=== PATIENT | male | born 1960 | race Caucasian/White ===

== ENCOUNTER 2016-07-09 23:43 | Emergency (ER) | payer OTHER ==
[2016-07-09 23:50] VITALS: BP 137/96; PULSE 88; TEMP 97.7; BMI 29.4
--- NOTE | 2016-07-10 00:35 | PDOC ---
History of Present Illness - General Chief Complaint: Lightheaded Stated Complaint: HOT FLASHES Time Seen by Provider: 07/09/16 23:55 History Source: Patient Exam Limitations: No Limitations - History of Present Illness Initial Comments: 07/10/16 00:33 This is a 56-year-old male who comes in complaining of headache, body aches, hot and cold flashes. Patient did not take his temperature however did take some Aleve shortly before coming in and now feels like he is hot. Patient denies any cough or congestion at this time. Patient is otherwise healthy and he takes no medications. Patient denies any substance abuse, patient is otherwise healthy. PAST MEDICAL HISTORY: no significant history PAST SURGICAL HISTORY: no significant history FAMILY HISTORY: no pertinant history SOCIAL HISTORY: Pt lives with family and is employed. MEDICATIONS: reviewed ALLERGIES: As per nursing notes Review of Systems General: + fevers or chills, no weakness, no weight loss HEENT: No change in vision. No sore throat,. No ear pain CardioVascular: No chest pain or shortness of breath Respiratory:No cough, or wheezing. Gastrointestinal: no nausea, vomitting, diarrhea or constipation, No rectal bleeding Genitourinary: No dysuria, hematuria, or frequency Musculoskeletal: + body aches Neurologic: + headache, vertigo, dizziness or loss of consciousness Psychiatric: nor depression Skin: No rashes or easy bruising Endocrine: no increased thirst or abnormal weight change Allergic: no skin or latex allergy All other systems reviewed and normal Exam: General: Well-nourished well-developed individual, no acute distress HEENT: Throat: Normal, tonsils normal, no erythema or exudate Neck: Supple, no meningeal signs, no lymphadenopathy Eyes::Pupils equal reactive and round, extraocular motion intact Chest: Nontender to palpation Cardiac: S1-S2 normal, regular rate and rhythm, no murmurs rubs or gallops Respiratory: Lungs clear to auscultation bilateral Abdomen: Soft, nondistended, normal bowel sounds, nontender to palpation diffusely Extremities: Warm, dry, no cyanosis, clubbing, or edema Skin: No rashes Neuro: Alert and oriented x3, nonfocal exam, grossly intact, normal gait Psych: Normal mood and affect Assessment and plan: This is a 56-year-old male who comes in complaining of hot flashes, headache and body aches. Patient said that heart flashes a core after he takes Tylenol for his headache or body aches. Patient most likely is experiencing some fevers in addition to his other symptoms and when he takes the Tylenol it causes a fever bruit to break giving him the hot flashes. Patient was afebrile here in the emergency room. Patients symptoms are consistent with influenza-type illness. Patient otherwise had a normal exam. And his headache and body aches had improved post taking the Aleve. Patient was reassured that his symptoms most likely are secondary to a viral etiology and continue to take Tylenol or Motrin for his symptoms and follow-up with his doctor on Tuesday if not improved. Past History - Past Medical History Allergies/Adverse Reactions: Allergies Allergy/AdvReac Type Severity Reaction Status Date / Time celery Allergy Throat Verified 10/10/15 18:17 swelling if raw Seasonal allergies Allergy Uncoded 10/10/15 18:17 Home Medications: Ambulatory Orders NK [No Known Home Medication] 10/10/15 Other medical history: DENIES - Psycho/Social/Smoking Cessation Hx Anxiety: No Suicidal Ideation: No Smoking Status: No Smoking History: Never smoked Number of Cigarettes Smoked Daily: 0 Hx Alcohol Use: No Drug/Substance Use Hx: No Substance Use Type: None Hx Substance Use Treatment: No *Physical Exam - Vital Signs Last Vital Signs Temp Pulse Resp BP Pulse Ox 97.7 F 88 16 137/96 98 07/09/16 23:45 07/09/16 23:45 07/09/16 23:45 07/09/16 23:45 07/09/16 23:45 *DC/Admit/Observation/Transfer Diagnosis at time of Disposition: Influenza-like illness - Discharge Dispostion Disposition: HOME Condition at time of disposition: Stable - Referrals Referrals: Trell Mercado MD [Primary Care Provider] - - Patient Instructions Additional Instructions: Tylenol or Motrin as needed for headache, body aches and fevers. Return to the emergency department immediately with ANY new, persistent or worsening symptoms. Continue any medications as previously prescribed by your physician. You should follow up with your primary doctor as soon as possible regarding today's emergency department visit. . Please make sure your doctor reviews the results of your emergency evaluation. Thank you for coming to the Emergency Department today for your care. It was a pleasure to see you today. Please note that your evaluation is INCOMPLETE until you follow-up with your doctor.
== END 2016-07-10 00:38 | disposition home or self-care (01) ==
LOC: FER 23:43
DX: J11.1 Influenza due to unidentified influenza virus with other respiratory manifestations (principal)
CPT/HCPCS: 99281-25

== ENCOUNTER 2018-05-30 07:49 | Emergency (ER) | payer OTHER ==
[2018-05-30 08:06] VITALS: TEMP 98.3; BMI 29.8
[2018-05-30] MEDS ORDERED: ALBUTEROL SO4 2.5/IPRATROPIUM 0.5 INH SOL 3 ML VIAL.NEB. NEB ONE ×4 (08:40→09:11)
--- NOTE | 2018-05-30 08:45 | PDOC ---
History of Present Illness - General Chief Complaint: Respiratory Stated Complaint: FEELING SOME SHORTNESS OF BREATH COUGH Time Seen by Provider: 05/30/18 07:59 History Source: Patient Exam Limitations: No Limitations - History of Present Illness Initial Comments: 05/30/18 08:41 CHIEF COMPLAINT: Cough and asthma 2 weeks HISTORY OF PRESENT ILLNESS: This is a 58-year-old man with a history of asthma, mild, intermittent, usually treated with albuterol. Positive ED visits in the past but never hospitalized. Patient has been off asthma medication for quite a while. His last attack was about 2 years ago. Over the past 2 weeks he has been noticing mostly nocturnal wheezing with shortness of breath. He did not have any medication for his asthma. He denies any URI symptoms. There is no sore throat or fever. There is no nasal discharge. He has been having cough which is stimulated by taking a deep breath. There is no sputum production. There is no chest pain. He does have shortness of breath which waxes and wanes depending on the degree of wheezing. REVIEW OF SYSTEMS: GENERAL/CONSTITUTIONAL: No fever or chills. No weakness. No weight change. HEAD, EYES, EARS, NOSE AND THROAT: No change in vision. No ear pain or discharge. No sore throat. CARDIOVASCULAR: No chest pain. + Positive shortness of breath. No history of DVT. No leg swelling or pain. RESPIRATORY: + Positive cough and wheezing. No hemoptysis. GASTROINTESTINAL: No nausea, vomiting, diarrhea or constipation. No rectal bleeding. GENITOURINARY: No dysuria, frequency, or change in urination. MUSCULOSKELETAL: No joint or muscle swelling or pain. No neck or back pain. SKIN AND BREASTS: No rash or easy bruising. NEUROLOGIC: No headache, vertigo, loss of consciousness, or loss of sensation. PSYCHIATRIC: No depression or anxiety. ENDOCRINE: No increased thirst. No abnormal weight change. HEMATOLOGIC/LYMPHATIC: No anemia, easy bleeding, or history of blood clots. ALLERGIC/IMMUNOLOGIC: No hives or skin allergy. No latex allergy. Past History - Past Medical History Allergies/Adverse Reactions: Allergies Allergy/AdvReac Type Severity Reaction Status Date / Time celery Allergy Throat Verified 10/10/15 18:17 swelling if raw Seasonal allergies Allergy Uncoded 10/10/15 18:17 Home Medications: Ambulatory Orders Albuterol Sulfate Inhaler - [Ventolin HFA Inhaler -] 2 inh PO Q4H PRN #1 inh 06/17 Asthma: Yes (MILD, intermittent) COPD: No - Suicide/Smoking/Psychosocial Hx Smoking Status: No Smoking History: Never smoked Have you smoked in the past 12 months: No Number of Cigarettes Smoked Daily: 0 Information on smoking cessation initiated: No Hx Alcohol Use: Yes (SOCIAL) Drug/Substance Use Hx: No Substance Use Type: None Hx Substance Use Treatment: No *Physical Exam - Vital Signs Last Vital Signs Temp Pulse Resp BP Pulse Ox 98.3 F 100 H 20 150/108 H 100 05/30/18 07:50 05/30/18 07:50 05/30/18 07:50 05/30/18 07:50 05/30/18 07:50 - Physical Exam Comments: 05/30/18 08:44 GENERAL: The patient is awake, alert, and fully oriented, in no acute distress. He is breathing comfortably, speaking in full sentences with no respiratory distress. Peak expiratory flow rate was 350, and on repeat 340, prior to treatment. HEAD: Normal with no signs of trauma. EYES: Pupils equal, round and reactive to light, extraocular movements intact, sclera anicteric, conjunctiva clear. ENT: Ears normal, nares patent, oropharynx clear without exudates. Moist mucous membranes. NECK: Normal range of motion, supple without lymphadenopathy, JVD, or masses. LUNGS: There are bilateral scattered expiratory wheezes. No crackles. Positive mild nonproductive cough, exacerbated on deep breath. HEART: Regular rate and rhythm, normal S1 and S2 without murmur, rub or gallop. ABDOMEN: Soft, nontender, normoactive bowel sounds. No guarding, no rebound. No masses. EXTREMITIES: Normal range of motion, no edema. No clubbing or cyanosis. No cords, erythema, or tenderness. No calf tenderness. NEUROLOGICAL: Cranial nerves II through XII grossly intact. Normal speech, normal gait. PSYCH: Normal mood, normal affect. SKIN: Warm, Dry, normal turgor, no rashes or lesions noted. Moderate Sedation - Procedure Monitoring Vital Signs: Procedure Monitoring Vital Signs Temperature 98.3 F 05/30/18 07:50 Pulse Rate 100 H 05/30/18 07:50 Respiratory Rate 20 05/30/18 07:50 Blood Pressure 150/108 H 05/30/18 07:50 O2 Sat by Pulse Oximetry (%) 100 05/30/18 07:50 Heart Score/ECG Review - ECG Impressions Comment:: 05/30/18 09:05 Twelve-lead EKG shows normal sinus rhythm at a rate of 90 bpm. The axis is normal. The intervals are normal. There are no acute ST elevations or depressions. Impression: Normal 12-lead EKG ED Treatment Course - RADIOLOGY Radiology Studies Ordered: Category Date Time Status CHEST PA & LAT [RAD] Stat Radiology 05/30/18 08:41 Ordered Medical Decision Making - Medical Decision Making 05/30/18 10:08 Patient is a 58 old man with a prior history of mild intermittent asthma. He comes in now with 2 weeks of wheezing and shortness of breath. He has been on no medications for asthma lately. There are no symptoms of upper respiratory infections. On examination, there is mild scattered wheezing. Initial peak flow was 350 prior to treatment. After 2 nebulizer treatments the repeat lung exam is clear with normal breath sounds. Peak flow increased to 450 L/m. Patient is feeling much better. Twelve-lead EKG shows normal sinus rhythm without acute changes. Chest x-ray PA and lateral is clear without any signs of heart or lung abnormalities. Impression: Asthma exacerbation. Patient will be prescribed albuterol which has worked very well for him in the emergency department. He will follow-up with his primary care physician Dr. Mercado. *DC/Admit/Observation/Transfer Diagnosis at time of Disposition: Asthma exacerbation Qualifiers: Asthma severity: mild Asthma persistence: persistent Qualified Code(s): J45.31 - Mild persistent asthma with (acute) exacerbation - Discharge Dispostion Disposition: HOME Condition at time of disposition: Stable Decision to Admit order: No - Prescriptions Prescriptions: Albuterol Sulfate Inhaler - [Ventolin HFA Inhaler -] 2 inh PO Q4H PRN #1 inh PRN Reason: wheezing, shortness of breath - Referrals Referrals: Trell Mercado MD [Primary Care Provider] - 7 days - Patient Instructions Printed Discharge Instructions: DI for Asthma -- Adult Additional Instructions: Today you were evaluated for cough and wheezing. You were found to have asthma with wheezing on examination. The chest x-ray is normal. The EKG is normal. Your diagnosis is a flareup of asthma. You are advised to take albuterol 2 puffs every 4 hours as needed for cough or wheezing. Follow-up with Dr. Mercado in the next week. Return to the emergency department for any severe or progressive symptoms. - Post Discharge Activity
[2018-05-30 09:32] VITALS: BP 128/97; PULSE 98
--- NOTE | 2018-05-31 19:04 | EKG ---
Test Reason : Blood Pressure : / mmHG Vent. Rate : 090 BPM Atrial Rate : 090 BPM P-R Int : 176 ms QRS Dur : 088 ms QT Int : 380 ms P-R-T Axes : 062 040 022 degrees QTc Int : 464 ms NORMAL SINUS RHYTHM NORMAL ECG NO PREVIOUS ECGS AVAILABLE Confirmed by KARIME HERRING, SANDY ([id number]) on 05/31/2018 7:03:56 PM Referred By: DOMINGO NARANJO Confirmed By:SANDY SCHAFFER MD
== END 2018-05-30 10:21 | disposition home or self-care (01) ==
LOC: FER 07:49
PROC: 3E0F7GC Introduction of Other Therapeutic Substance into Respiratory Tract, Via Natural or Artificial Opening (ICD-10-PCS; principal; 2018-05-30)
DX: J45.31 Mild persistent asthma with (acute) exacerbation (principal)
CPT/HCPCS: 71046-TC-FY; 93005; 99282-25

== ENCOUNTER 2023-04-15 19:55 | Emergency (ER) | payer OTHER ==
[2023-04-15 20:09] VITALS: BP 132/68; PULSE 78; RESP 18; TEMP 97.8; BMI 29.7
== END 2023-04-15 21:44 | disposition home or self-care (01) ==
LOC: FER 19:55
DX: M79.661 Pain in right lower leg (principal); S86.111A Strain of other muscle(s) and tendon(s) of posterior muscle group at lower leg level, right leg, initial encounter; X58.XXXA Exposure to other specified factors, initial encounter
CPT/HCPCS: 99283-25

== ENCOUNTER 2024-01-10 15:50 | Emergency (ER) | payer OTHER ==
[2024-01-10] MEDS ORDERED: IPRATROPIUM BR 0.02% 0.5 MG/2.5 ML VIAL.NEB. NEB ONE (16:11)
[2024-01-10 16:12] VITALS: BP 148/99; PULSE 76; RESP 18; TEMP 97.8; BMI 28.1
[2024-01-10] MEDS ORDERED: ALBUTEROL SO4 0.083% IH SOL 2.5 MG/3 ML VIAL.NEB. NEB ONE (16:12)
[2024-01-10] MEDS ORDERED: ALBUTEROL SO4 2.5/IPRATROPIUM 0.5 INH SOL 3 ML VIAL.NEB. NEB ONE (16:17)
[2024-01-10] MEDS: ALBUTEROL SO4 0.083% IH SOL 2.5 MG/3 ML VIAL.NEB. NEB ONE (16:23)
[2024-01-10] MEDS: ALBUTEROL SO4 2.5/IPRATROPIUM 0.5 INH SOL 3 ML VIAL.NEB. NEB SCH (16:23)
== END 2024-01-10 17:25 | disposition home or self-care (01) ==
LOC: FER 15:50
PROC: 3E0F7GC Introduction of Other Therapeutic Substance into Respiratory Tract, Via Natural or Artificial Opening (ICD-10-PCS; principal; 2024-01-10)
DX: J45.901 Unspecified asthma with (acute) exacerbation (principal)
CPT/HCPCS: 99283-25